=== PATIENT | female | born 1960 | race Two or more races ===

== ENCOUNTER 2019-01-11 08:02 | Outpatient (CLI) | payer OTHER ==
[~2019-01-11 08:02] MED LIST: ASA81 MG PO; AVALIDE 300-12.1 TAB PO; FORTAMET1000 MG/BO PO; HUMALOG100 U/M1 SQ; LABETALOL HCL100 MG PO; NEURONTIN800 MG PO; TRICOR145 MG PO; ZOCOR5 MG PO
== END 2019-01-11 17:00 | disposition home or self-care (01) ==
LOC: RAD 08:02
DX: R06.09 Other forms of dyspnea (principal); E11.21 Type 2 diabetes mellitus with diabetic nephropathy; E66.8 Other obesity; I12.9 Hypertensive chronic kidney disease with stage 1 through stage 4 chronic kidney disease, or unspecified chronic kidney disease; Z99.2 Dependence on renal dialysis

== ENCOUNTER 2019-08-02 08:16 | Outpatient (CLI) | payer OTHER | END 2019-08-02 08:27 | disposition home or self-care (01) | LOC: MAMO-SONO 08:16 | DX: Z12.31 Encounter for screening mammogram for malignant neoplasm of breast (principal); Z87.898 Personal history of other specified conditions; N64.4 Mastodynia; N64.89 Other specified disorders of breast; N63.10 Unspecified lump in the right breast, unspecified quadrant; N63.20 Unspecified lump in the left breast, unspecified quadrant ==